=== PATIENT | male | born 1995 | race Caucasian/White ===

== ENCOUNTER 2019-01-04 22:41 | Emergency (ER) | payer SELFPAY ==
[~2019-01-04 22:41] MED LIST: ISOVUE-370 76%-LOCM 1 ML ONE
[2019-01-04] MEDS ORDERED: Morphine 4 MG/ML VIAL ONE ×2 (23:10→23:19)
[2019-01-04] MEDS ORDERED: Adacel (T-DAP) 0.5 ML SYRINGE ONE (23:11)
[2019-01-04] MEDS ORDERED: Ondansetron PF 4 MG/2 ML Vial ONE (23:11)
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
[2019-01-04 23:15] LABS: INR-International Normal Ratio 1.1; PTT 25.4 SEC (22.9-36.1); Prothrombin Time 13.8 SEC (12.0-14.7)
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
[2019-01-04 23:29] LABS: #Eosinphils 0.3 thou/uL (0.0-0.7); #Lymphocytes 2.4 thou/uL (1.20-3.40); #Monocytes 0.7 thou/uL (0.11-0.59); #Neutrophils 4.8 thou/uL (1.40-6.50); %Basophils 0.5 % (0.0-1.0); %Eosinophils 3.4 % (0.0-10.0); %Lymphocytes 29.2 % (21.0-51.0); %Monocytes 8.2 % (0.0-10.0); %Neutrophils 58.7 % (42.0-75.0); Hemoglobin 15.3 g/dL (14.0-18.0); Mean Corpuscular HGB CONC 36.2 g/dL (32.0-36.0); Mean Corpuscular Hemoglobin 31.3 pg (27.0-31.0); Mean Corpuscular Volume 86.5 fL (78.0-98.0); Mean Platelet Volume 8.6 fL (7.4-10.4); RBC Distribution Width 11.2 % (11.5-14.5); White Blood Cell (WBC) Count 8.2 thou/uL (4.8-10.8)
[2019-01-04 23:31] LABS: ALT (SGPT) 32 U/L (8-55); AST (SGOT) 24 U/L (5-34); Albumin 4.7 g/dL (3.5-5.0); Alcohol 137 mg/dL (Less than 10); Alkaline Phosphatase 98 U/L (40-110); Anion Gap 16 mmol/L (10-20); BUN (Urea Nitrogen) 10 mg/dL (8.9-20.6); Bilirubin, Total 0.5 mg/dL (0.2-1.2); Calc. Creatinine Clearance 0 mL/min (70-130); Calcium 9.6 mg/dL (7.8-10.44); Carbon Dioxide 20 mmol/L (22-29); Chloride 108 mmol/L (98-107); Estimated GFR-MDRD Greater than 90; Globulin 3.2 g/dL (2.4-3.5); Glucose 95 mg/dL (70-105); Potassium 3.5 mmol/L (3.5-5.1); Protein, Total 7.9 g/dL (6.0-8.3); Sodium 140 mmol/L (136-145)
[2019-01-04 23:40] LABS: Platelet Count 339 thou/uL (130-400)
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
== END 2019-01-05 00:29 | disposition home or self-care (01) ==
LOC: ERS 22:41
DX: S60.221A Contusion of right hand, initial encounter (principal); V86.99XA Unspecified occupant of other special all-terrain or other off-road motor vehicle injured in nontraffic accident, initial encounter
CPT/HCPCS: 29125; 70450; 71260; 72125; 74177; 80053; 80307; 85025; 85610; 85730; 90715; 96361; 96374; 96375; J2270; J2405

== ENCOUNTER 2024-11-10 13:25 | Emergency (ER) | payer SELFPAY ==
[~2024-11-10 13:25] MED LIST changes: -ISOVUE-370 76%-LOCM 1 ML ONE; +Iopamidol-370 76% 500 ML MDV (1 ML CHARGE) ONE
[2024-11-10 13:43] LABS: #Basophils 0.09 10x3/uL (0.0-0.2); #Eosinophils 0.44 10x3/uL (0.0-0.7); #Monocytes 0.81 10x3/uL (0.11-0.59); #Neutrophils 4.42 10x3/uL (1.40-6.50); %Basophils 1.0 % (0.0-1.0); %Eosinophils 5.1 % (0.0-10.0); %Lymphocytes 32.0 % (21.0-51.0); %Monocytes 9.4 % (0.0-10.0); %Neutrophils 51.3 % (42.0-75.0); Hematocrit 44.1 % (42.0-52.0); Hemoglobin 16.0 g/dL (14.0-18.0); Mean Corpuscular Hemoglobin 30.4 pg (27.0-31.0); Mean Corpuscular Volume 83.7 fL (78.0-98.0); Platelet Count 321 10x3/uL (130-400); Red Blood Cell (RBC) Count 5.27 mill/uL (4.70-6.10); White Blood Cell (WBC) Count 8.62 10x3/uL (4.8-10.8)
[2024-11-10] MEDS ORDERED: Ondansetron PF 4 MG/2 ML Vial ONE (13:49)
[2024-11-10] MEDS ORDERED: Boostrix 0.5 ML (Tdap) VIAL (>/=7 yrs of age) ONE (13:50)
[2024-11-10] MEDS ORDERED: CEFAZOLIN 2 GM VIAL ONE (13:50)
[2024-11-10 13:57] LABS: PTT 25.8 sec (22.9-36.1)
[2024-11-10 13:58] LABS: INR-International Normal Ratio 1.1; Prothrombin Time 14.2 sec (12.0-14.7)
[2024-11-10 14:09] LABS: ALT (SGPT) 98 U/L (Less than 45); AST (SGOT) 56 U/L (11-34); Albumin 4.7 g/dL (3.1-4.5); Alkaline Phosphatase 101 U/L (40-110); Anion Gap 19 mmol/L (10-20); BUN (Urea Nitrogen) 10 mg/dL (8.9-20.6); Bilirubin, Total 0.5 mg/dL (0.3-1.2); Calc. Creatinine Clearance 0 mL/min (70-130); Calcium 10.0 mg/dL (7.8-10.44); Carbon Dioxide 20 mmol/L (22-29); Chloride 106 mmol/L (98-107); Globulin 3.4 g/dL (2.4-3.5); Glucose 102 mg/dL (70-105); Lipase 22 U/L (8-78); Potassium 4.0 mmol/L (3.5-5.1); Sodium 141 mmol/L (136-145)
== END 2024-11-10 15:20 | disposition home or self-care (01) ==
LOC: EEVIPCON 13:25 → ERS 13:25
DX: S52.602B Unspecified fracture of lower end of left ulna, initial encounter for open fracture type I or II (principal); S52.502B Unspecified fracture of the lower end of left radius, initial encounter for open fracture type I or II; S62.627B Displaced fracture of middle phalanx of left little finger, initial encounter for open fracture; F17.220 Nicotine dependence, chewing tobacco, uncomplicated; X93.XXXA Assault by handgun discharge, initial encounter; Z23 Encounter for immunization
CPT/HCPCS: 36415; 71045; 80053; 80307; 83690; 85025; 85610; 85730; 86850; 86900; 86901; 90471; 90715; 93005; 94760; 96365; 96375; 96376; G0390; J2405; J3010; Q9967